=== PATIENT | female | born 2005 | race Caucasian/White ===

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

== ENCOUNTER 2024-02-06 10:53 | Emergency (ER) | payer BC ==
[~2024-02-06] VITALS: Ht 162.6 cm; Wt 59.1 kg
[~2024-02-06 10:53] MED LIST: PEPCID 20MG TAB20 MG PO; ZOFRAN ODT4 MG PO
[2024-02-06 10:59] VITALS: TEMP 98.4
[2024-02-06 12:09] LABS: BASO % 0.3 % (0.0-2.0); EOS # 0.1 K/mm3 (0.0-0.7); EOS % 0.8 % (0.0-4.0); GRAN # 7.7 K/mm3 (1.4-6.5); GRAN % 76.6 % (42.2-75.2); HEMATOCRIT 41.9 % (35.0-45.0); HEMOGLOBIN 13.8 g/dl (12.0-15.0); LYMPH # 1.7 K/mm3 (1.2-3.4); LYMPH % 16.8 % (20.0-51.0); MEAN CELL VOLUME 90 fl (80.0-95.0); MEAN CORPUSCULAR HEMOGLOBIN 30 pg (26-32); MEAN CORPUSCULAR HGB CONC 33 g/dl (33.0-37.0); MEAN PLATELET VOLUME 9.6 fl (7.4-10.4); MONO # 0.5 K/mm3 (0.1-0.6); MONO % 5.3 % (1.7-9.3); PLATELET COUNT 336 K/mm3 (130-400); RED BLOOD COUNT 4.67 M/mm3 (4.10-5.30); REDCELL DISTRIBUTION WIDTH-CV 12.9 % (11.5-14.5)
[2024-02-06] MEDS ORDERED: NS 1,000 ML IV ONE (12:30)
[2024-02-06 12:31] LABS: ALBUMIN 4.1 g/dL (3.5-5.0); BILIRUBIN,TOTAL 0.4 mg/dL (0.2-1.2); CALCIUM 9.4 mg/dL (8.4-10.2); CREATININE, serum 0.91 mg/dL (0.57-1.11); POTASSIUM 3.5 mEq/L (3.5-4.5); TOTAL PROTEIN 7.9 g/dl (6.2-8.1)
[2024-02-06] MEDS ORDERED: Iohexol 300 - 100 ML VIAL IV ONE (13:25)
[2024-02-06] MEDS ORDERED: NS 100 ML IV SCH (13:26)
[2024-02-06 14:49] LABS: COLLECTION METHOD CLEAN CATCH
[2024-02-06 15:00] LABS: PH 5.5 (5.0-8.5); URINE APPEARANCE CLEAR (CLEAR/HAZY); URINE BLOOD TRACE (NEGATIVE); URINE COLOR YELLOW (YELLOW); URINE GLUCOSE NEGATIVE (NEGATIVE); URINE KETONE 3+ (NEGATIVE); URINE NITRATE NEGATIVE (NEGATIVE); URINE PROTEIN(semi-quant) NEGATIVE (NEGATIVE); URINE UROBILINOGEN 0.2 E.U/dL (0.2-1.0)
[2024-02-06] MEDS ORDERED: ZOFRAN ODT4 MG PO (15:47)
[2024-02-06 15:55] VITALS: BP 117/91; PULSE 84
== END 2024-02-06 15:59 | disposition home or self-care (01) ==
LOC: COL.ER 10:53
PROVIDERS: Physician Assistant
DX: R10.31 Right lower quadrant pain (principal); R11.2 Nausea with vomiting, unspecified
CPT/HCPCS: J7030; Q9967

== ENCOUNTER 2024-02-23 18:25 | Emergency (ER) | payer BC ==
[~2024-02-23] VITALS: Ht 162.6 cm; Wt 65.9 kg
[2024-02-23 18:31] VITALS: BP 124/77; TEMP 98.9
[2024-02-23 19:16] VITALS: PULSE 72
== END 2024-02-23 19:25 | disposition home or self-care (01) ==
LOC: COL.ER 18:25
DX: S63.501A Unspecified sprain of right wrist, initial encounter (principal); W18.2XXA Fall in (into) shower or empty bathtub, initial encounter; Y93.E1 Activity, personal bathing and showering